=== PATIENT | male | born 1975 | race Caucasian/White ===

== ENCOUNTER → 2022-11-10 10:12 | Outpatient (CLI) | payer BC, SELFPAY ==
[2022-11-10 20:23] LABS: Add Manual Diff / Slide Review NO; Basophils Absolute Auto 0 /uL (0-100); Basophils Percent Auto 0.5 % (0-2); Eosinophils Absolute Auto 100 /uL (0-450); Eosinophils Percent Auto 2.1 % (2-4); Hematocrit 49.2 % (41-53); Hemoglobin 17.3 g/dL (13.5-17.5); Lymphocytes Absolute Auto 2000 /uL (1100-4500); Lymphocytes Percent Auto 29.6 % (25-40); Mean Corpuscular HGB Conc 35.2 % (30-36); Mean Corpuscular Hemoglobin 28.7 PG (26-34); Mean Corpuscular Volume 81.5 fL (80-100); Monocytes Absolute Auto 400 /uL (0-900); Monocytes Percent Auto 6.7 % (3-14); Neutrophils Absolute Auto 4000 /uL (1500-7000); Neutrophils Percent Auto 61.1 % (50-75); Platelet Count 221 X10^3/uL (150-400); Red Blood Cell Count 6.03 X10^6/uL (4.5-5.9); Red Cell Distribution Width 13.1 % (11.6-14.8); White Blood Cell Count 6.6 X10^3/uL (4.5-11.0)
[2022-11-10 20:30] LABS: BUN Creatinine Ratio 15.4 (6-22); Blood Urea Nitrogen 18 mg/dL (9-20); Calcium 9.4 mg/dL (8.4-10.2); Carbon Dioxide 24 mmol/L (22-32); Chloride 104 mmol/L (98-107); Cholesterol 198 mg/dL (140-199); Estimated Glomerular Filt Rate > 60 mL/min (>60); Glucose 105 mg/dL (70-100); HDL Cholesterol 28 mg/dL (40-60); HEMOLYSIS < 15 (0-50); LDL Cholesterol Calculated 128 mg/dL (<100); Potassium 4.4 mmol/L (3.4-5.1); Sodium 136 mmol/L (137-145); Triglycerides 212 mg/dL (35-150)
[2022-11-10 21:01] LABS: Prostate Specific Antigen Scrn 0.884 ng/mL (0.1-4.0)
== END ==
PROVIDERS: PCP Family Medicine; Visit Provider Family Medicine
DX: I10 Essential (primary) hypertension (principal); Z13.1 Encounter for screening for diabetes mellitus; Z13.220 Encounter for screening for lipoid disorders; Z13.6 Encounter for screening for cardiovascular disorders; Z12.5 Encounter for screening for malignant neoplasm of prostate
CPT/HCPCS: 80048; 80061; 85025; G0103

== ENCOUNTER 2022-12-09 10:52 | Day surgery (SDC) | payer BC, SELFPAY ==
--- NOTE | 2022-12-09 | PATH_ITS ---
[facility] Accession Number: [id number] No. of containers..01 Tissue . 01 Material submitted: . sigmoid colon - SIGMOID POLYP . 01 Diagnosis: Sigmoid Colon Polyp: Colonic mucosa with focal mucosal hyperplasia. Negative for dysplasia or malignancy. Additional step sections examined. MRV 12/15/2022 1452 Local . 01 Electronically signed: . Reji Guillen MD, PhD, Pathologist NPI- [id number] . 01 Gross description: . SIGMOID POLYP: Received in formalin is 1 fragment(s) of lechuga, soft tissue measuring 1.2 x 0.8 x 0.2 cm submitted entirely in 1 cassette(s) /MELISSA 12/13/2022 2220 Local . 01 Pathologist provided ICD-10: K63.5 . 01 CPT . 710720 Specimen Comment: A courtesy copy of this report has been sent to [phone] Performed at: 01 [facility] [address] [place] [address] [address] [facility], [place], [place] [id number] MD Clark Frias MD Phone: [phone]
[2022-12-09 11:04] VITALS: BP 171/114; PULSE 99; RESP 22; TEMP 36.1; O2SAT 99; BMI 38.5
[2022-12-09] MEDS: LACTATED RINGERS 1,000 ML 100 ML IV (11:10)
--- NOTE | 2022-12-09 12:15 | P.HP_ITS ---
History of Present Illness History of Present Illness Date Patient Seen: 12/09/22 Time Patient Seen: 12:15 Chief complaint: SDC Narrative: Song is a 47-year-old man here for colonoscopy. He has never had 1 before. His father was diagnosed with colon cancer in his 60s. [facility] Social History household members: spouse Smoking Status: Never smoker alcohol intake: current Meds Home Medications and Allergies Allergies Allergy/AdvReac Type Severity Reaction Status Date / Time No Known Drug Allergies Allergy Verified 10/20/22 09:27 Exam Vital Signs (past 8 hours): - 12/09/22 11:04 Temperature 97 F L Pulse Rate 99 H Respiratory Rate 22 Blood Pressure 171/114 H Pulse Oximetry 99 Oxygen Delivery Method Room Air Oxygen Delivery Method Room Air Const General: No acute distress Assessment & Plan Assessment and plan (1) Family history of colon cancer: Status: Acute Plan Song is a 47-year-old man here for colonoscopy due to a family history of colon cancer. We reviewed the risks and benefits of colonoscopy he would like to proceed.
--- NOTE | 2022-12-09 12:48 | P.OP.COLON_ITS ---
Operative Date/Time/Diagnoses Date of procedure: 12/09/22 Time of procedure: 12:48 Pre-op diagnosis: Family history of colon cancer Post-op diagnosis: same Procedure & Clinicians Study performed: Colonoscopy Procedure Notes Procedure in detail: Surgeon: Juanjose Glaeano MD Anesthesia: Ulisses Abrams CRNA Procedure: The patient was brought to the endoscopy suite, placed in left lateral decubitus position. The patient was connected to monitoring devices. A time-out was performed. Sedation was administered. Once the patient was adequa tely sedated, a digital rectal exam was performed and was normal. The scope was then inserted and advanced to the cecum where the appendiceal orifice was identified and photographed. The scope was then slowly withdrawn over greater than 6 minutes. The mucosa was thoroughly inspected. There was a 5 mm polyp in the sigmoid colon removed with a cold snare. The scope was retroflexed in the rectum. No other abnormalities were seen. The scope was straightened and removed. The patient was awakened and brought to recovery. Scope withdrawal time: 14 minutes Sedation time: 18 minutes EBL: 2 mL Findings: 5 mm polyp in the sigmoid colon Post-procedure Disposition: PACU
[2022-12-09 12:51] VITALS: BP 144/100; PULSE 88; RESP 15; TEMP 36.7; O2SAT 98
[2022-12-09 12:58] VITALS: BP 143/107; PULSE 85; RESP 16; TEMP 36.7; O2SAT 98
[2022-12-09 13:04] VITALS: BP 146/105; PULSE 78; RESP 18; TEMP 36.6; O2SAT 99
== END 2022-12-09 13:19 | disposition home or self-care (01) ==
PROVIDERS: PCP Family Medicine; Referring Provider Surgery; Visit Provider Surgery
PROC: 0DJD8ZZ Inspection of Lower Intestinal Tract, Via Natural or Artificial Opening Endoscopic (ICD-10-PCS; CPT 45378; principal; 2022-12-09 12:15)
DX: Z12.11 Encounter for screening for malignant neoplasm of colon (principal); Z80.0 Family history of malignant neoplasm of digestive organs; K63.5 Polyp of colon
CPT/HCPCS: 45385; J2704

== ENCOUNTER → 2025-06-07 10:18 | Outpatient (CLI) | payer BC, SELFPAY ==
[2025-06-07 19:28] LABS: Add Manual Diff / Slide Review NO; Hematocrit 48.7 % (41-53); Hemoglobin 16.9 g/dL (13.5-17.5); Lymphocytes Absolute Auto 1600 /uL (1100-4500); Mean Corpuscular HGB Conc 34.6 % (30-36); Mean Corpuscular Hemoglobin 28.8 PG (26-34); Mean Corpuscular Volume 83.1 fL (80-100); Platelet Count 201 X10^3/uL (150-400)
[2025-06-07 19:34] LABS: Alanine Aminotransferase 43 IU/L (<50); Albumin 4.5 g/dL (3.5-5.0); Albumin Globulin Ratio 1.8 (1.0-2.8); Alkaline Phosphatase 49 U/L (38-126); Blood Urea Nitrogen 23 mg/dL (9-20); Calcium 9.4 mg/dL (8.4-10.2); Carbon Dioxide 25 mmol/L (22-32); Chloride 107 mmol/L (98-107); Cholesterol 201 mg/dL (140-199); Estimated Glomerular Filt Rate > 60 mL/min (>60); Globulin 2.5 g/dL (1.7-4.1); Glucose 106 mg/dL (70-99); HDL Cholesterol 32 mg/dL (40-60); Potassium 4.5 mmol/L (3.4-5.1); Sodium 140 mmol/L (137-145); Total Protein 7.0 g/dL (6.3-8.2); Triglycerides 170 mg/dL (35-150)
[2025-06-07 19:46] LABS: HEMOLYSIS 23 (0-50)
[2025-06-07 20:03] LABS: TSH w/ Reflex to FT4 1.10 uIU/mL (0.47-4.68)
[2025-06-08 16:01] LABS: HIV 1 & 2 Ab/Ag 4th Gen Combo NEGATIVE (NEGATIVE); Hep C Virus Ab w/Reflex Quant NEGATIVE s/c (NEGATIVE)
== END ==
PROVIDERS: PCP Physician Assistant; Visit Provider Family Medicine
DX: I10 Essential (primary) hypertension (principal); E78.2 Mixed hyperlipidemia; R01.1 Cardiac murmur, unspecified; G47.30 Sleep apnea, unspecified; Z11.4 Encounter for screening for human immunodeficiency virus [HIV]; Z11.59 Encounter for screening for other viral diseases; Z12.5 Encounter for screening for malignant neoplasm of prostate
CPT/HCPCS: 80053; 80061; 84443; 85025; 86803; 87389; G0103

== ENCOUNTER → 2025-07-25 11:30 | Outpatient (CLI) | payer BC, SELFPAY ==
--- NOTE | 2025-07-25 11:32 | DI.US.S_ITS ---
PROCEDURE: US SOFT TISSUE HEAD AND NECK INDICATIONS: right upper back/base of neck mass TECHNIQUE: Real-time scanning was performed of the neck region of interest, with image documentation. COMPARISON: None. FINDINGS: Targeted ultrasound evaluation of the subcutaneous soft tissues at the base of the posterior neck and at the left anterior thigh. At the base of the posterior neck, heterogeneous parenchyma and the subcutaneous fat measuring 1.7 x 1.1 x 2.1 cm is noted. Parenchyma is similar echotexture as the adjacent subcutaneous fat. Margins are poorly defined. In anterior left thigh palpable mass, there is a hyperechoic circumscribed 3.4 x 2.3 x 2.9 cm mass isoechoic to the adjacent subcutaneous fat. No internal vascularity. IMPRESSION: Palpable lesion in the anterior left thigh corresponds to a hyperechoic 3.4 cm avascular soft tissue mass. Given sonographic features, findings most likely represent a lipoma. Indeterminate heterogeneous parenchyma high sequela to the adjacent subcutaneous fat noted at the base of the posterior neck measuring 1.7 cm. Again, this may represent heterogeneous parenchyma or lipoma. If the mass continues to increase in size and/or becomes painful, recommend MRI with and without contrast follow-up. Dictated by: Erica Pimentel M.D. on 07/26/2025 at 13:41 Approved by: Erica Pimentel M.D. on 07/26/2025 at 13:49
== END ==
LOC: US 11:31
PROVIDERS: PCP Physician Assistant; Referring Provider Physician Assistant; Visit Provider Physician Assistant
DX: I35.8 Other nonrheumatic aortic valve disorders (principal); R01.1 Cardiac murmur, unspecified; M79.89 Other specified soft tissue disorders; R22.32 Localized swelling, mass and lump, left upper limb
CPT/HCPCS: 76536; 93306